=== PATIENT | female | born 1970 | race Caucasian/White ===

== ENCOUNTER 2018-07-12 09:30 | Emergency (ER) | payer OTHER ==
--- NOTE | 2018-07-12 09:35 | PDOC ---
History of Present Illness - General Chief Complaint: Cold Symptoms Stated Complaint: COLD SYMPTOMS Time Seen by Provider: 07/12/18 09:35 - History of Present Illness Initial Comments: 07/12/18 10:24 Chief complaint: Fever/chills, nonproductive cough, sore throat, and body aches. History of present illness: The above symptoms have been present for approximately one week, although mild respiratory symptoms have been intermittent since may. No chest pain, shortness of breath, abdominal pain, vomiting, diarrhea. Slight intermittent nausea is present. Patient is holding down oral fluids and fluids, no appetite is poor Review of systems: As above. Otherwise negative Past medical history: Osteoporosis on intravenous medication, "seizure disorder " and Topamax. Has been treated with 3 courses of antibiotics including amoxicillin, Zithromax last dose Friday. Antibiotics have made her feel "worse" . Perimenopausal. No known heart or lung disease. Social history: Stays at home, no one else she knows is sick, but she did not receive a flu shot. No alcohol tobacco or drugs. Family history: Reviewed and noncontributory Physical exam: Alert oriented 3 well-developed well-nourished no acute distress cooperative 99.4, vital signs otherwise normal Ears and throat clear. Mild nasal congestion, no discharge. Dry cough Neck supple without bruit mass or nodes Chest clear with full breath sounds bilaterally, no wheezes rales or rhonchi. No tachypnea or dyspnea CV regular without murmur rub or gallop Abdomen soft nontender without mass or organomegaly Extremities no CCE Skin clear, no rash, adequate turgor and wet mucous membranes Neurological intact Impression: Present illness is consistent with influenza. Appears uncomplicated. Prior illnesses since may have likely been other viruses. Multiple courses of antibiotics are probably predisposed to viral illness Plan: Rest, fluids, symptomatic treatment for nausea, fever/pain, and cough. Follow-up if symptoms worsen ER. Otherwise primary physician as directed. Fully ambulatory and in no significant pain or other distress upon discharge to follow -up as directed Past History - Past Medical History Allergies/Adverse Reactions: Allergies Allergy/AdvReac Type Severity Reaction Status Date / Time Sulfa (Sulfonamide Allergy Unknown Verified 07/12/18 09:53 Antibiotics) Home Medications: Ambulatory Orders Azelastine HCl [Astepro] 1 - 2 spr NS BID PRN 07/12/18 Cholecalciferol (Vitamin D3) [Vitamin D3] 1,000 unit PO DAILY 07/12/18 Diclofenac Potassium 50 mg PO TID PRN #20 tablet 07/12/18 Fluticasone Prop 0.05% Nasal [Flonase -] 1 - 2 spray NS BID PRN 07/12/18 Guaifenesin AC [Robitussin AC -] 5 - 10 ml PO TID PRN #120 ml MDD 6 07/12/18 Ondansetron [Zofran Odt -] 4 mg SL TID PRN #10 od.tablet 07/12/18 Rizatriptan Benzoate [Rizatriptan] 10 mg PO TID PRN 07/12/18 Topiramate [Topamax -] 25 mg PO HS 07/12/18 Zoledronic Acid/Man/Water [Reclast 5 mg/100 ml -] 5 mg IVPB ONCE 07/12/18 - Suicide/Smoking/Psychosocial Hx Smoking History: Never smoked Have you smoked in the past 12 months: No Hx Alcohol Use: No Drug/Substance Use Hx: No Substance Use Type: None *DC/Admit/Observation/Transfer Diagnosis at time of Disposition: Viral upper respiratory tract infection with cough - Discharge Dispostion Disposition: HOME Condition at time of disposition: Stable Decision to Admit order: No - Prescriptions Prescriptions: Diclofenac Potassium 50 mg PO TID PRN #20 tablet PRN Reason: Pain Or Fever Guaifenesin AC [Robitussin AC -] 5 - 10 ml PO TID PRN #120 ml MDD 6 PRN Reason: Cough Ondansetron [Zofran Odt -] 4 mg SL TID PRN #10 od.tablet PRN Reason: Nausea And/Or Vomiting - Referrals Referrals: Malika Cortes MD [Primary Care Provider] - 3 days - Patient Instructions Printed Discharge Instructions: DI for Cough -- Adult, DI for Viral Upper Respiratory Infection -- Adult Additional Instructions: Rest and medication as directed for fever and pain, nausea, and cough. Fluids and good nutrition Recheck primary physician 2-3 days. Return to ER if worse. - Post Discharge Activity
[2018-07-12] MEDS ORDERED: guaiFENesin/CODEINE 10 ML UNIT-DOSE CUPS PO ONE (10:15)
[2018-07-12] MEDS ORDERED: guaiFENesin/CODEINE 10 ML UNIT-DOSE CUPS ONE (10:18)
[2018-07-12] MEDS ORDERED: ACETAMINOPHEN 325 MG TABLET (FP) PO ONE (10:19)
[2018-07-12] MEDS ORDERED: ACETAMINOPHEN 325 MG TABLET (FP) ONE (10:21)
[2018-07-12 12:01] VITALS: TEMP 97.5; BMI 25.8
[2018-07-12] MEDS ORDERED: PANTOPRAZOLE SODIUM 40 MG in SODIUM CHLORIDE 100 ML IVPB ONE (12:02)
[2018-07-12] MEDS ORDERED: SODIUM CHLORIDE 1,000 ML IV STA (12:02)
[2018-07-12] MEDS ORDERED: MAG HYDROX/AL HYDROX/SIMETH -MYLANTA- ORAL SUSPENSION PO ONE (12:03)
[2018-07-12] MEDS ORDERED: ONDANSETRON 4 MG/2 ML VIAL IVPB ONE (12:09)
[2018-07-12] MEDS ORDERED: ONDANSETRON 4 MG/2 ML VIAL ONE (12:15)
[2018-07-12] MEDS ORDERED: MAG HYDROX/AL HYDROX/SIMETH 30 ML UNIT-DOSE CUP ONE (12:15)
[2018-07-12] MEDS ORDERED: PANTOPRAZOLE SODIUM 40 MG VIAL ONE (12:16)
[2018-07-12 12:38] LABS: BASO % 0.7 % (0-2.0); EOS % 0.3 % (0-4.5); HEMATOCRIT 45.7 % (32.4-45.2); HEMOGLOBIN 14.8 GM/dl (10.7-15.3); LYMPH % 29.4 % (8-40); MCH 28.9 pg (25.7-33.7); MCHC 32.4 g/dl (32.0-36.0); MEAN CELL VOLUME 88.9 fl (80-96); MONO % 14.2 % (3.8-10.2); NEUT % 55.4 % (42.8-82.8); PLATELET COUNT 182 K/MM3 (134-434); RBC 5.14 M/mm3 (3.60-5.2); RDW 11.9 % (11.6-15.6); WHITE BLOOD COUNT 3.6 K/mm3 (4.0-10.8)
[2018-07-12 12:39] LABS: ALBUMIN 4.1 g/dl (3.4-5.0); ALK PHOS 126 U/L (45-117); ANION GAP 11 MMOL/L (8-16); BILIRUBIN,TOTAL 0.6 mg/dl (0.2-1); BLOOD UREA NITROGEN 14 mg/dl (7-18); CALCIUM 8.8 mg/dl (8.5-10); CHLORIDE 103 mmol/L (98-107); CO2 20 mmol/L (21-32); CREATININE 0.9 mg/dl (0.55-1.3); GLUCOSE,RANDOM 124 mg/dl (74-106); POTASSIUM 3.8 mmol/L (3.5-5.1); SGOT/AST 46 U/L (15-37); SGPT/ALT 28 U/L (13-61); SODIUM 134 mmol/L (136-145); TOT PROT 7.6 g/dl (6.4-8.2)
[2018-07-12] MEDS ORDERED: ACETAMINOPHEN 1000 MG/100 ML VIAL (NON FORMULARY) IVPB ONE (13:37)
--- NOTE | 2018-07-12 13:37 | PDOC ---
History of Present Illness - General Chief Complaint: Syncope/Near Syncope Stated Complaint: VOMITED & PASSED OUT Time Seen by Provider: 07/12/18 12:01 - History of Present Illness Initial Comments: 07/12/18 16:21 Chief complaint: Epigastric pain History of present illness: After being treated in the emergency room for URI with cough earlier today, given Robitussin with codeine, developed epigastric pain severe and the feeling she is going to pass out Review of systems: Admits severe crampy epigastric and lower chest pain. Denies shortness of breath. Denies fever/chills. Denies vomiting or diarrhea. Past medical history, social, family history as noted in prior visit Physical exam: Alert, moderate be severe abdominal pain, confined to the epigastrium. Cooperative Afebrile, vital signs normal No pallor or icterus. HEENT clear Neck supple without bruit mass or nodes Chest clear with full breath sounds bilaterally no wheezes rales or rhonchi CV S1 and S2 normal without murmur rub or gallop pulses full and symmetric no JVD or edema no bruits Abdomen nondistended. Bowel sounds normal. Soft without mass or organomegaly. There is mild tenderness to deep palpation confined to the epigastric area, without guarding or rebound. Extremities no CCE Neurological intact Impression: GI irritation secondary to codeine Plan: Proton pump inhibitor, antacids, IV fluids and observe. Past History - Past Medical History Allergies/Adverse Reactions: Allergies Allergy/AdvReac Type Severity Reaction Status Date / Time Sulfa (Sulfonamide Allergy Unknown Verified 07/12/18 09:53 Antibiotics) Home Medications: Ambulatory Orders Azelastine HCl [Astepro] 1 - 2 spr NS BID PRN 07/12/18 Cholecalciferol (Vitamin D3) [Vitamin D3] 1,000 unit PO DAILY 07/12/18 Fluticasone Prop 0.05% Nasal [Flonase -] 1 - 2 spray NS BID PRN 07/12/18 Ondansetron [Zofran Odt -] 4 mg SL TID PRN #12 od.tablet 07/12/18 Pantoprazole Sodium [Protonix] 40 mg PO DAILY #10 tablet. 07/12/18 Rizatriptan Benzoate [Rizatriptan] 10 mg PO TID PRN 07/12/18 Topiramate [Topamax -] 25 mg PO HS 07/12/18 Zoledronic Acid/Man/Water [Reclast 5 mg/100 ml -] 5 mg IVPB ONCE 07/12/18 COPD: No Kidney Stones: Yes Other medical history: MIGRAINE, CHRONIC SINUSITIS - Suicide/Smoking/Psychosocial Hx Smoking History: Never smoked Have you smoked in the past 12 months: No Hx Alcohol Use: No Drug/Substance Use Hx: No Substance Use Type: None *Physical Exam - Vital Signs Last Vital Signs Temp Pulse Resp BP Pulse Ox 97.5 F L 62 16 106/75 99 07/12/18 11:55 07/12/18 13:00 07/12/18 13:00 07/12/18 13:00 07/12/18 13:00 Moderate Sedation - Procedure Monitoring Vital Signs: Procedure Monitoring Vital Signs Temperature 97.5 F L 07/12/18 11:55 Pulse Rate 62 07/12/18 13:00 Respiratory Rate 16 07/12/18 13:00 Blood Pressure 106/75 07/12/18 13:00 O2 Sat by Pulse Oximetry (%) 99 07/12/18 13:00 ED Treatment Course - LABORATORY CBC & Chemistry Diagram: 07/12/18 12:05 07/12/18 12:05 - ADDITIONAL ORDERS Additional order review: Laboratory Results 07/12/18 07/12/18 07/12/18 12:05 12:05 12:05 Sodium 134 L Potassium 3.8 Chloride 103 Carbon Dioxide 20 L Anion Gap 11 BUN 14 Creatinine 0.9 Creat Clearance w eGFR > 60 Random Glucose 124 H Calcium 8.8 Total Bilirubin 0.6 AST 46 H ALT 28 Alkaline Phosphatase 126 H Creatine Kinase 137 Troponin I < 0.03 Total Protein 7.6 Albumin 4.1 07/12/18 12:05 RBC 5.14 MCV 88.9 MCHC 32.4 RDW 11.9 MPV 10.0 Neutrophils % 55.4 Lymphocytes % 29.4 Monocytes % 14.2 H Eosinophils % 0.3 Basophils % 0.7 - Medications Given in the ED: ED Medications Discontinued Medications Generic Name Dose Route Start Last Admin Trade Name Freq PRN Reason Stop Dose Admin Al Hydroxide/Mg Hydroxide 30 ml 07/12/18 12:03 07/12/18 12:28 Mylanta Suspension - PO 07/12/18 12:04 30 ml ONCE ONE Administration Pantoprazole Sodium 40 mg/ 100 mls @ 200 mls/hr 07/12/18 12:02 07/12/18 12:17 Sodium Chloride IVPB 07/12/18 12:31 200 mls/hr ONCE ONE Administration Sodium Chloride 1,000 mls @ 1,000 mls/hr 07/12/18 12:02 07/12/18 12:15 Normal Saline - IV 07/12/18 13:01 1,000 mls/hr ASDIR STA Administration Ondansetron HCl 4 mg 07/12/18 12:09 07/12/18 12:25 Zofran Injection IVPB 07/12/18 12:10 4 mg ONCE ONE Administration Medical Decision Making - Medical Decision Making 07/12/18 16:25 EKG: Normal. No ST-T wave changes. CBC and chemistries without significant abnormalities. Good response to therapy. Pain, nausea, resolved. Fully ambulatory with friend, follow-up as directed. *DC/Admit/Observation/Transfer Diagnosis at time of Disposition: Gastritis Qualifiers: Gastritis type: superficial Chronicity: acute Gastritis bleeding: without bleeding Qualified Code(s): K29.00 - Acute gastritis without bleeding - Discharge Dispostion Disposition: HOME Condition at time of disposition: Improved Decision to Admit order: No - Prescriptions Prescriptions: Pantoprazole Sodium [Protonix] 40 mg PO DAILY #10 tablet.dr - Referrals Referrals: Malika Cortes MD [Primary Care Provider] - 24 hours David Sanchez MD [Staff Physician] - 1 week - Patient Instructions Printed Discharge Instructions: DI for Gastritis Additional Instructions: Stop ibuprofen, codeine, and all medications except for Tylenol, Protonix, and Mylanta. Clear liquids for 24 hours until stomach symptoms resolved completely. - Post Discharge Activity
[2018-07-12] MEDS ORDERED: ACETAMINOPHEN INJECTION 100 ML IVPB ONE (13:38)
[2018-07-12 15:11] VITALS: BP 102/68; PULSE 60
--- NOTE | 2018-07-13 10:08 | EKG ---
Test Reason : Blood Pressure : / mmHG Vent. Rate : 058 BPM Atrial Rate : 058 BPM P-R Int : 160 ms QRS Dur : 070 ms QT Int : 430 ms P-R-T Axes : 065 059 037 degrees QTc Int : 422 ms SINUS BRADYCARDIA POSSIBLE LEFT ATRIAL ENLARGEMENT BORDERLINE ECG WHEN COMPARED WITH ECG OF 12-JUL-2018 12:14, NO SIGNIFICANT CHANGE WAS FOUND Confirmed by RISA RAMEY MD ([id number]) on 07/13/2018 10:07:30 AM Referred By: ANAM BARTLETT Confirmed By:RISA RAMEY MD
== END 2018-07-12 15:17 | disposition home or self-care (01) ==
LOC: FER 09:30
DX: J06.9 Acute upper respiratory infection, unspecified (principal); R05 Cough
CPT/HCPCS: 36415; 80053; 82550; 84484; 85025; 93005; 99284-25; 99285-25; J0131; J7030

== ENCOUNTER 2018-07-12 11:54 | Emergency (ER) | payer OTHER | END 2018-07-12 15:17 | disposition home or self-care (01) | LOC: FER 11:54 ==

== ENCOUNTER 2023-08-06 10:17 | Emergency (ER) | payer OTHER ==
[2023-08-06 10:34] VITALS: BP 118/80; PULSE 65; RESP 20; TEMP 98.3; BMI 26.4
[2023-08-06] MEDS ORDERED: LIDOCAINE 5% TOPICAL PATCH ONE (10:38)
[2023-08-06] MEDS ORDERED: KETOROLAC TROMETHAMINE 30 MG/1 ML VIAL ONE (10:38)
[2023-08-06] MEDS ORDERED: ACETAMINOPHEN 500 MG TABLET (FP) ONE (10:38)
[2023-08-06] MEDS ORDERED: METHOCARBAMOL 500 MG TABLET ONE (10:38)
[2023-08-06] MEDS: LIDOCAINE 5% TOPICAL PATCH TP ONE (11:00)
[2023-08-06] MEDS: METHOCARBAMOL 500 MG TABLET PO ONE (11:01)
[2023-08-06] MEDS: ACETAMINOPHEN 325 MG TABLET (FP) PO ONE (11:01)
[2023-08-06] MEDS: KETOROLAC TROMETHAMINE 30 MG/1 ML VIAL IM ONE (11:02)
[2023-08-06] MEDS ORDERED: LIDOCAINE PATCH REMOVAL MC ONE (22:00)
== END 2023-08-06 14:40 | disposition home or self-care (01) ==
LOC: FER 10:17
DX: M54.50 Low back pain, unspecified (principal); R10.30 Lower abdominal pain, unspecified; M79.671 Pain in right foot
CPT/HCPCS: 72100-TC-FY; 73502-TC-LT-FY; 73502-TC-RT-FY; 73630-TC-RT-FY; 99284-25